=== PATIENT | female | born 1985 | race Caucasian/White ===

== ENCOUNTER 2020-05-13 13:00 | Emergency (ER) | payer OTHER ==
[~2020-05-13 13:00] MED LIST: AMOXICILLIN875 MG PO; ANTIVERT25 MG PO; HYDROCODON-ACE1 EAC4 PO; IBUPROFEN800 MG PO; MEDROL 4MG DOSEP4 MG PO; NAPROXEN500 MG PO; ONDANSETRON ODT4 MG SL; PEPCID AC20 MG PO
== END 2020-05-13 14:30 | disposition home or self-care (01) ==
LOC: FER 13:00
DX: R51.9 Headache, unspecified (principal); R50.9 Fever, unspecified; R11.0 Nausea; R53.1 Weakness
CPT/HCPCS: 99283

== ENCOUNTER 2020-07-26 12:51 | Emergency (ER) | payer OTHER | END 2020-07-26 13:37 | disposition home or self-care (01) | LOC: FER 12:51 | DX: S80.212A Abrasion, left knee, initial encounter (principal); Z23 Encounter for immunization; W19.XXXA Unspecified fall, initial encounter | CPT/HCPCS: 90471; 90715; 99283 ==

== ENCOUNTER 2021-12-11 14:07 | Emergency (ER) | payer OTHER ==
[2021-12-11 15:16] LABS: BASOPHIL 0.3 % (0-2); EOSINOPHIL 1.2 % (0-5); HCT 39.1 % (37.0-47.0); HGB 12.9 g/dl (12.5-16.0); LYMPHOCYTE 3.3 % (15-48); MCH 25.4 pg (25.0-31.0); MONOCYTE 5.9 % (0-12); MPV 10.2 fL (6.0-9.5); NEUTROPHIL 88.7 % (41-80); NRBC 0; PLT 287 K/uL (150-400); RBC 5.08 M/uL (4.20-5.40); RDW 13.8 % (11.5-14.0); WBC 6.6 K/uL (4.0-10.5)
[2021-12-11 15:26] LABS: BUN/CREAT RATIO (CALC) 11.9 RATIO; CREATININE 0.59 mg/dL (0.51-0.95); POTASSIUM 3.9 mmol/L (3.5-5.1)
[2021-12-11] MEDS ORDERED: MEDROL 4MG DOSEP4 MG PO (16:46)
== END 2021-12-11 16:53 | disposition home or self-care (01) ==
LOC: FER 14:07
PROVIDERS: Nurse Practitioner Family
DX: U07.1 COVID-19 (principal); Z28.310 Unvaccinated for COVID-19
CPT/HCPCS: 36415; 71045; 80048; 85025; J7030; U0002

== ENCOUNTER 2022-01-19 10:59 | Emergency (ER) | payer OTHER ==
[2022-01-19 12:19] LABS: INFLUENZA A NAA NEGATIVE (NEGATIVE)
[2022-01-19 12:25] LABS: CORONAVIRUS 2019 SARS-COV-2 POSITIVE (NEGATIVE)
[2022-01-19] MEDS ORDERED: ONDANSETRON ODT4 MG PO (12:36)
[2022-01-19] MEDS ORDERED: AZITHROMYCIN250 MG PO (12:36)
[2022-01-19] MEDS ORDERED: MEDROL 4MG DOSEP4 MG PO (12:36)
== END 2022-01-19 12:55 | disposition home or self-care (01) ==
LOC: FER 10:59
PROVIDERS: Internal Medicine
DX: U07.1 COVID-19 (principal); J02.9 Acute pharyngitis, unspecified; Z28.310 Unvaccinated for COVID-19
CPT/HCPCS: 87880; 96372; 99283; J1100; J1885; U0002